=== PATIENT | female | born 1945 | race Asian ===

== ENCOUNTER → 2018-11-08 | Outpatient (CLI) | payer OTHER, BC ==
[~2018-11-08] MED LIST: ALTACE; DIABETA; IBUPROFEN 600600 M1 PO; LIPITOR; METFORMIN; NEXIUM; WELCHOL PO
== END ==
LOC: RAD 14:04
DX: Z12.31 Encounter for screening mammogram for malignant neoplasm of breast (principal)

== ENCOUNTER → 2019-05-04 | Outpatient (CLI) | payer OTHER, BC | LOC: CAT 04-28 12:50 | DX: K42.9 Umbilical hernia without obstruction or gangrene (principal); R10.9 Unspecified abdominal pain; R91.8 Other nonspecific abnormal finding of lung field; K57.30 Diverticulosis of large intestine without perforation or abscess without bleeding ==

== ENCOUNTER → 2019-05-23 | Outpatient (CLI) | payer OTHER, BC | LOC: ULTRA 14:14 | DX: R93.5 Abnormal findings on diagnostic imaging of other abdominal regions, including retroperitoneum (principal); R10.2 Pelvic and perineal pain; I10 Essential (primary) hypertension; K21.9 Gastro-esophageal reflux disease without esophagitis; E11.9 Type 2 diabetes mellitus without complications; E78.00 Pure hypercholesterolemia, unspecified; Z90.710 Acquired absence of both cervix and uterus; Z90.722 Acquired absence of ovaries, bilateral ==

== ENCOUNTER → 2019-08-08 | Outpatient (CLI) | payer OTHER, BC | LOC: CAT 11:26 | DX: R91.8 Other nonspecific abnormal finding of lung field (principal) ==

== ENCOUNTER → 2020-10-16 | Outpatient (CLI) | payer OTHER, BC | LOC: RAD 09:41 → BC 10:02 | PROVIDERS: ATTEND Internal Medicine | DX: Z12.31 Encounter for screening mammogram for malignant neoplasm of breast (principal); R91.8 Other nonspecific abnormal finding of lung field; R14.0 Abdominal distension (gaseous); M47.816 Spondylosis without myelopathy or radiculopathy, lumbar region; M48.07 Spinal stenosis, lumbosacral region ==

== ENCOUNTER → 2021-01-10 | Outpatient (CLI) | payer OTHER, BC | LOC: MRI 10:59 | DX: M43.12 Spondylolisthesis, cervical region (principal); M50.10 Cervical disc disorder with radiculopathy, unspecified cervical region; M48.02 Spinal stenosis, cervical region; M48.061 Spinal stenosis, lumbar region without neurogenic claudication; M43.16 Spondylolisthesis, lumbar region; M51.36 Other intervertebral disc degeneration, lumbar region; M85.88 Other specified disorders of bone density and structure, other site ==